=== PATIENT | male | born 1965 | race Caucasian/White ===

== ENCOUNTER → 2018-03-18 | Outpatient (CLI) | payer OTHER | LOC: M WUC 16:18 | DX: R05 Cough (principal); R06.02 Shortness of breath | CPT/HCPCS: 71046 ==

== ENCOUNTER 2018-10-17 02:20 | Emergency (ER) | payer OTHER ==
[~2018-10-17] VITALS: Ht 172.7 cm; Wt 84.1 kg
[2018-10-17] MEDS ORDERED: CYCLOBENZAPRINE 5MG TABLET PO ONE (06:30)
[2018-10-17] MEDS ORDERED: IBUPROFEN 600 MG TAB PO ONE (06:30)
[2018-10-17] MEDS ORDERED: CYCL5TAB PO (06:34)
[2018-10-17 06:40] LABS: BASO % 0.4 % (0.0-1.0); EOS # 0.1 10^3/uL (0.0-0.50); EOS % 2.5 % (0.0-3.0); HEMATOCRIT 43.2 % (42.0-52.0); HEMOGLOBIN 14.3 g/dl (13.5-17.5); LYMPH # 1.5 10^3/uL (1.5-4.5); LYMPH % 28.2 % (24.0-44.0); MEAN CORPUSCULAR HEMOGLOBIN 30.7 pg (27.0-33.0); MEAN CORPUSCULAR HGB CONC 33.1 g/dl (32.0-36.5); MEAN CORPUSCULAR VOLUME 92.7 fl (80.0-96.0); MONO # 0.7 10^3/uL (0.0-0.8); MONO % 13.5 % (0.0-5.0); NEUTROPHILS # 2.9 10^3/uL (1.8-7.7); NEUTROPHILS % 55.2 % (36.0-66.0); PLATELET COUNT, AUTOMATED 211 10^3/uL (150-450); RED BLOOD COUNT 4.66 10^6/uL (4.30-6.10); WHITE BLOOD COUNT 5.2 10^3/uL (4.0-10.0)
[2018-10-17 07:03] LABS: BLOOD UREA NITROGEN 25 MG/DL (7-18); CALCIUM LEVEL 9.1 MG/DL (8.5-10.1); CARBON DIOXIDE LEVEL 25 MEQ/L (21-32); CHLORIDE LEVEL 110 MEQ/L (98-107); CREATININE FOR GFR 0.96 MG/DL (0.70-1.30); GLOMERULAR FILTRATION RATE > 60.0 (>56); GLUCOSE, FASTING 75 MG/DL (70-100); POTASSIUM SERUM 4.4 MEQ/L (3.5-5.1); SODIUM LEVEL 142 MEQ/L (136-145)
[2018-10-17 08:10] VITALS: BP 108/65
--- NOTE | 2018-10-17 09:32 | REP ---
LUMBOSACRAL SPINE: Five views of the lumbosacral spine performed. There is no compression fracture. There is straightening of the normal lumbar lordosis which may indicate muscle spasm. There is mild spurring with moderate disc space narrowing, subchondral sclerosis with vacuum phenomenon at the L1-2 level. There is mild narrowing at the L4-5 and L5-S1 disc spaces with sclerotic change of the posterior facet joints at those levels. The posterior elements are intact. There is slight curvature towards the left. IMPRESSION: No fracture or dislocation. Straightening of the normal lumbar lordosis and mild curvature toward the left may indicate spasm. Degenerative changes as above. Electronically Signed by Magdy Flood MD 10/17/2018 05:22 P
== END 2018-10-17 08:12 | disposition home or self-care (01) ==
LOC: M ED 02:20
DX: M51.36 Other intervertebral disc degeneration, lumbar region (principal); M62.830 Muscle spasm of back; E86.0 Dehydration; R79.89 Other specified abnormal findings of blood chemistry; M54.5 Low back pain; G89.29 Other chronic pain; Z87.891 Personal history of nicotine dependence

== ENCOUNTER → 2018-10-28 | Outpatient (REF) | payer OTHER ==
[~2018-10-28] MED LIST: CYCL5TAB PO
[2018-10-28 15:48] LABS: BASO % 0.5 % (0.0-1.0); EOS # 0.1 10^3/uL (0.0-0.50); EOS % 1.9 % (0.0-3.0); HEMOGLOBIN 13.9 g/dl (13.5-17.5); LYMPH # 1.6 10^3/uL (1.5-4.5); LYMPH % 28.2 % (24.0-44.0); MEAN CORPUSCULAR HEMOGLOBIN 30.4 pg (27.0-33.0); MEAN CORPUSCULAR HGB CONC 33.1 g/dl (32.0-36.5); MEAN CORPUSCULAR VOLUME 91.9 fl (80.0-96.0); MONO # 0.7 10^3/uL (0.0-0.8); MONO % 11.7 % (0.0-5.0); NEUTROPHILS # 3.3 10^3/uL (1.8-7.7); NEUTROPHILS % 57.5 % (36.0-66.0); PLATELET COUNT, AUTOMATED 208 10^3/uL (150-450); RED BLOOD COUNT 4.57 10^6/uL (4.30-6.10); WHITE BLOOD COUNT 5.7 10^3/uL (4.0-10.0)
[2018-10-28 16:15] LABS: ALBUMIN 4.3 GM/DL (3.2-5.2); ALT/SGPT 29 U/L (12-78); BILIRUBIN,TOTAL 0.7 MG/DL (0.2-1.0); BLOOD UREA NITROGEN 19 MG/DL (7-18); CALCIUM LEVEL 9.3 MG/DL (8.5-10.1); CARBON DIOXIDE LEVEL 26 MEQ/L (21-32); CHLORIDE LEVEL 107 MEQ/L (98-107); CHOLESTEROL LEVEL 192 MG/DL (<200); CHOLESTEROL RISK RATIO 4.173 (<5); CREATININE FOR GFR 1.06 MG/DL (0.70-1.30); GLOMERULAR FILTRATION RATE > 60.0 (>56); GLUCOSE, FASTING 72 MG/DL (70-100); HDL CHOLESTEROL 46 MG/DL (>40); LDL CHOLESTEROL 126 MG/DL (<100); NON-HDL-C 146 MG/DL; POTASSIUM SERUM 4.2 MEQ/L (3.5-5.1); SODIUM LEVEL 139 MEQ/L (136-145); TOTAL PROTEIN 7.8 GM/DL (6.4-8.2); TRIGLYCERIDES LEVEL 99 MG/DL (<150)
== END ==
LOC: M SFHCPLAZ 14:56
PROVIDERS: ATTEND Physician Assistant Medical
DX: Z13.220 Encounter for screening for lipoid disorders (principal); Z12.5 Encounter for screening for malignant neoplasm of prostate; R91.1 Solitary pulmonary nodule
CPT/HCPCS: 36415; 80053; 80061; 85025; G0103; G0463

== ENCOUNTER 2018-11-25 10:25 | Emergency (ER) | payer OTHER ==
[~2018-11-25] VITALS: Ht 172.7 cm; Wt 79.1 kg
[2018-11-25 10:25] VITALS: BP 131/66
[2018-11-25] MEDS ORDERED: GABA-1171 (10:30)
[2018-11-25] MEDS ORDERED: NS 1,000 ML IV ONE (10:45)
[2018-11-25] MEDS ORDERED: ONDANSETRON 4MG/2ML VIAL (J2405) IV ONE (10:45)
[2018-11-25] MEDS ORDERED: KETOROLAC 30 MG/ML VIAL (J1885) IV ONE (10:45)
[2018-11-25 11:15] LABS: BASO % 0.3 % (0.0-1.0); EOS % 0.1 % (0.0-3.0); HEMATOCRIT 40.4 % (42.0-52.0); HEMOGLOBIN 13.8 g/dl (13.5-17.5); LYMPH # 0.8 10^3/uL (1.5-4.5); LYMPH % 10.2 % (24.0-44.0); MEAN CORPUSCULAR HEMOGLOBIN 31.4 pg (27.0-33.0); MEAN CORPUSCULAR HGB CONC 34.2 g/dl (32.0-36.5); MONO # 0.6 10^3/uL (0.0-0.8); MONO % 8.7 % (0.0-5.0); NEUTROPHILS # 5.9 10^3/uL (1.8-7.7); NEUTROPHILS % 80.2 % (36.0-66.0); PLATELET COUNT, AUTOMATED 211 10^3/uL (150-450); RED BLOOD COUNT 4.39 10^6/uL (4.30-6.10); WHITE BLOOD COUNT 7.3 10^3/uL (4.0-10.0)
[2018-11-25 11:36] LABS: ALBUMIN 3.7 GM/DL (3.2-5.2); ALT/SGPT 33 U/L (12-78); BILIRUBIN,DIRECT < 0.1 MG/DL (0.0-0.2); BILIRUBIN,TOTAL 0.5 MG/DL (0.2-1.0); LIPASE 122 U/L (73-393); TOTAL PROTEIN 7.6 GM/DL (6.4-8.2)
--- NOTE | 2018-11-25 11:44 | REP ---
CT ABDOMEN AND PELVIS WITHOUT IV OR ORAL CONTRAST: Renal stone protocol. HISTORY: Rule out left ureterolithiasis. No comparison CT. CT FINDINGS: Digital preliminary director of finance view of the abdomen demonstrates a normal bowel gas pattern. The lung bases are clear on axial CT images. The liver and the spleen are normal in size homogeneous in texture. No adrenal lesion is seen. No abnormalities noted in the pancreas or in the gallbladder. There is mild to moderate hydronephrosis affecting the left kidney. There is perinephric stranding. Some periureteral stranding is seen. A left-sided hydroureter is traced to the pelvis where there is an obstructing calculus at mid pelvic level in the distal ureter. The calculus measures 6 mm in greatest diameter and is several centimeters above the ureterovesical junction. No bladder calculus is seen. Prostate and seminal vesicles are unremarkable. No intrarenal calculus is seen on either side. Small and large intestinal bowel loops are unremarkable. Normal appendix is seen medial to the cecum. No abdominal wall defect is observed. No evidence of acute bony abnormality. IMPRESSION: Obstructing 6 mm left distal ureteral calculus located several centimeters above the ureterovesical junction with mild to moderate hydronephrosis and hydroureter on the left and periureteral and perinephric stranding. Electronically Signed by Eder Pierre MD 11/25/2018 03:59 P
[2018-11-25] MEDS ORDERED: PERC5TAB12 PO (12:23)
[2018-11-25] MEDS ORDERED: FLOM0.4C39 PO (12:23)
== END 2018-11-25 12:40 | disposition home or self-care (01) ==
LOC: M ED 10:25
DX: N13.2 Hydronephrosis with renal and ureteral calculous obstruction (principal); D64.9 Anemia, unspecified; R79.89 Other specified abnormal findings of blood chemistry; M54.5 Low back pain; Z79.899 Other long term (current) drug therapy
CPT/HCPCS: 74176; 80047; 80076; 81001; 83690; 85025; 96361; 96374; 96375; 99284; J1885; J2405

== ENCOUNTER → 2019-01-26 | Outpatient (CLI) | payer OTHER ==
[~2019-01-26] MED LIST changes: +FLOM0.4C39 PO; +GABA-1171; +PERC5TAB12 PO
--- NOTE | 2019-01-26 10:04 | REP ---
Clinical: Kidney stone. Technique: Single supine view of the abdomen and pelvis. Findings: Evaluation is limited by overlying bowel gas pattern. A 5 mm calcification is identified in the distal left ureter essentially unchanged in position from prior CT. The bowel gas pattern is nonspecific. The skeletal structures are intact and stable. Impression: 5 mm distal left ureteral calculus unchanged in position when compared to CT dated 11/25/2018. Electronically Signed by Jostin Sullivan MD 01/26/2019 09:55 A
--- NOTE | 2019-01-26 12:28 | REP ---
Chest x-ray: Two views. History: Kidney stone . Comparison study: March 18, 2018 . Findings: The lungs are well inflated and free of infiltrate. The pleural angles are sharp. The heart size is normal. Pulmonary vasculature is not increased. No significant bony abnormality is seen. Impression: Negative chest x-ray. Electronically Signed by Eder Pierre MD 01/26/2019 12:20 P
[2019-01-26 13:39] LABS: HEMATOCRIT 41.2 % (42.0-52.0); HEMOGLOBIN 13.5 g/dl (13.5-17.5); MEAN CORPUSCULAR HGB CONC 32.8 g/dl (32.0-36.5); MEAN CORPUSCULAR VOLUME 91.6 fl (80.0-96.0); PLATELET COUNT, AUTOMATED 159 10^3/uL (150-450); WHITE BLOOD COUNT 6.1 10^3/uL (4.0-10.0)
[2019-01-26 13:54] LABS: INR 1.14; PROTHROMBIN TIME 14.3 SECONDS (11.8-14.0)
[2019-01-26 13:55] LABS: PARTIAL THROMBOPLASTIN TIME 31.7 SECONDS (25.0-38.4)
[2019-01-26 14:14] LABS: BLOOD UREA NITROGEN 16 MG/DL (7-18); CALCIUM LEVEL 9.5 MG/DL (8.5-10.1); CARBON DIOXIDE LEVEL 29 MEQ/L (21-32); CHLORIDE LEVEL 105 MEQ/L (98-107); CREATININE FOR GFR 0.91 MG/DL (0.70-1.30); GLOMERULAR FILTRATION RATE > 60.0 (>56); GLUCOSE, FASTING 89 MG/DL (70-100); SODIUM LEVEL 142 MEQ/L (136-145)
[2019-01-26 15:33] LABS: APPEARANCE, URINE CLEAR (CLEAR); BACTERIA, URINE AUTO NEGATIVE (NEGATIVE); BILIRUBIN, URINE AUTO NEGATIVE (NEGATIVE); BLOOD, URINE BLOOD NEGATIVE (NEGATIVE); COLOR, URINE YELLOW (YELLOW); GLUCOSE, URINE (UA) AUTO NEGATIVE (NEGATIVE); KETONE, URINE AUTO NEGATIVE (NEGATIVE); LEUKOCYTE ESTERASE, URINE AUTO NEGATIVE (NEGATIVE); NITRITE, URINE AUTO NEGATIVE (NEGATIVE); PROTEIN, URINE AUTO NEGATIVE (NEGATIVE); RBC, URINE AUTO 0 /HPF (0-3); SPECIFIC GRAVITY URINE AUTO 1.008 (1.002-1.035); SQUAMOUS EPITHELIAL CELL UR AU 0 /HPF (0-6); UROBILINOGEN, URINE AUTO 0.2 mg/dL (0.0-2.0); WBC, URINE AUTO 0 /HPF (0-3)
== END ==
LOC: M SMT 09:32
PROVIDERS: ATTEND Nurse Practitioner Family
DX: N20.0 Calculus of kidney (principal)
CPT/HCPCS: 36415; 71046; 74018; 80048; 81001; 85027; 85610; 85730; 87086; G0463

== ENCOUNTER → 2019-02-14 | Outpatient (CLI) | payer OTHER ==
[2019-02-14 12:07] LABS: APPEARANCE, URINE CLEAR (CLEAR); BACTERIA, URINE AUTO NEGATIVE (NEGATIVE); BILIRUBIN, URINE AUTO NEGATIVE (NEGATIVE); BLOOD, URINE BLOOD NEGATIVE (NEGATIVE); COLOR, URINE YELLOW (YELLOW); GLUCOSE, URINE (UA) AUTO NEGATIVE (NEGATIVE); KETONE, URINE AUTO NEGATIVE (NEGATIVE); LEUKOCYTE ESTERASE, URINE AUTO NEGATIVE (NEGATIVE); NITRITE, URINE AUTO NEGATIVE (NEGATIVE); PROTEIN, URINE AUTO NEGATIVE (NEGATIVE); RBC, URINE AUTO 0 /HPF (0-3); SPECIFIC GRAVITY URINE AUTO 1.009 (1.002-1.035); SQUAMOUS EPITHELIAL CELL UR AU 0 /HPF (0-6); UROBILINOGEN, URINE AUTO 0.2 mg/dL (0.0-2.0); WBC, URINE AUTO 0 /HPF (0-3)
--- NOTE | 2019-02-14 17:59 | ECGEPIP ---
[facility] Test Date: 2019-02-14 Pat Name: FRANCISCO TOLENTINO Department: Room: - Gender: Male [employer]: DELFIN : 1965 Requested By: Te MILAN Order Number: [id number] Reading MD: Anisa Cohen Measurements Intervals [place] Rate: 50 P: 66 [place]: 144 QRS: 54 QRSD: 80 T: 18 QT: 416 QTc: 383 Interpretive Statements SINUS BRADYCARDIA NO PRIOR Electronically Signed on 02-14-2019 17:59:00 EDT by Anisa Cohen
== END ==
LOC: M EKG 11:40
PROVIDERS: ATTEND Nurse Practitioner Family
DX: N20.0 Calculus of kidney (principal); R00.1 Bradycardia, unspecified

== ENCOUNTER 2019-02-24 07:22 | Day surgery (SDC) | payer OTHER ==
[~2019-02-24] VITALS: Ht 172.7 cm; Wt 78.0 kg
[~2019-02-24 07:22] MED LIST changes: +LIDOCAINE 2% INJ 100 MG/5 ML SDV (FOR ANES.) As Ordered ONE; +LR 1,000 ML IV ONE; +PROPOFOL 200 MG/20 ML VIAL As Ordered ONE; +PROPOFOL 500 MG/50 ML VIAL As Ordered ONE; +fentaNYL 100 MCG/2 ML INJECTION (J3010) As Ordered ONE
[2019-02-24] MEDS ORDERED: ONDANSETRON 4MG/2ML VIAL (J2405) As Ordered ONE (08:19)
[2019-02-24] MEDS ORDERED: dexameTHASONE 4 MG/ML 1ML VIAL (J1100) As Ordered ONE (08:20)
[2019-02-24] MEDS ORDERED: MIDAZOLAM INJ 2 MG/2 ML VIAL (J2250) As Ordered ONE (08:21)
[2019-02-24] MEDS ORDERED: CONRAY-60 60% 50ML VIAL (Q9961) As Ordered ONE (09:39)
--- NOTE | 2019-02-24 09:39 | REP ---
Very pyelogram: A single intraoperative fluoroscopic views performed during left ureteral stent placement: The proximal and distal stent pigtails are in satisfactory locations. Fluoroscopic exposure time is 0.09 seconds. Fluoroscopic images are performed with last image hold technology and require no additional radiation. Electronically Signed by Magdy Haq MD 02/24/2019 09:31 A
[2019-02-24] MEDS ORDERED: PERCOCET PO (09:54)
[2019-02-24] MEDS ORDERED: BACT800T5 PO (09:54)
[2019-02-24] MEDS ORDERED: PYRI1TAB5 PO (09:54)
[2019-02-24] MEDS ORDERED: OXYB5TAB2 PO (09:54)
[2019-02-24] MEDS ORDERED: ONDANSETRON 4MG/2ML VIAL (J2405) IV PRN (10:15)
[2019-02-24] MEDS ORDERED: fentaNYL 100 MCG/2 ML INJECTION (J3010) IV PRN (10:15)
[2019-02-24] MEDS ORDERED: MEPERIDINE INJ 25 MG/ML VIAL (J2175) IV PRN (10:15)
[2019-02-24] MEDS ORDERED: LR 1,000 ML IV SCH (10:15)
[2019-02-24] MEDS ORDERED: METOCLOPRAMIDE INJ 10MG/2ML VIAL (J2765) IV PRN (10:15)
[2019-02-24] MEDS ORDERED: oxyCODONE 5MG TAB PO PRN (10:15)
[2019-02-24 11:21] VITALS: BP 102/59
--- NOTE | 2019-02-24 22:18 | RO ---
DATE OF PROCEDURE: 02/24/2019 PREPROCEDURE DIAGNOSIS: Left ureteral stone. POSTPROCEDURE DIAGNOSIS: Left ureteral stone. PROCEDURE: Left ureteroscopic stone extraction with laser lithotripsy and basket extraction of stone. SURGEON: Alex Nolan MD CITY CARRIER: ANESTHESIA: General. INDICATIONS: This 54-year-old man has been trying unsuccessfully to pass a 6 mm stone for the last several weeks. He is having intermittent mild pain. DESCRIPTION OF PROCEDURE: After obtaining informed consent from the patient, he was taken to the operating room where after sufficient anesthetic, he was prepped and draped in the usual manner. A 22-[place] diagnostic cystoscope was advanced to the bladder and the bladder inspected. No stones seen. A wire was negotiated past the stone to the kidney under fluoroscopic control. We were unable to advance the rigid mini ureteroscope on the patient's left side. For this reason, we used a 12-[place] 4 cm balloon dilating catheter to dilate the ureteral orifice. This was done to 12 atmospheres. Fluoroscopic control was used. We thereafter passed the rigid mini ureteroscope without difficulty to the stone. It was grasped with a basket but could not be readily withdrawn. We used the 200 micron Holmium laser fiber to cut the stone into three pieces, which were then sequentially removed from the ureter. Final inspection showed no remaining stone. There was some edema at the point of stone impaction and at the area of ureteral orifice dilation. For these reasons, we elected to leave a stent. A 5-[place] stent was passed over the safety guidewire and positioned fluoroscopically in the kidney and bladder. The string was left attached, the bladder emptied, and the patient to recovery in satisfactory condition. There were no intraoperative complications. Blood loss was minimal. DISPOSITION: He is dismissed home on DS one by mouth twice a day, Pyridium 200 mg three times a day as needed for dysuria, oxybutynin 5 mg XL daily for bladder spasms. Percocet 5 one by mouth every 4-6 hours as needed pain. Diet as tolerated. Activity light. Followup next with nurse practitioner for stent removal. No driving within 8 hours of taking narcotics.
[2019-03-07 10:07] LABS: COMMENT Note: (.); Ca Ox Monohydrate 95 % (.)
== END 2019-02-24 11:21 | disposition home or self-care (01) ==
LOC: M SDC 07:22
PROVIDERS: ATTEND Urology
DX: N20.1 Calculus of ureter (principal); N20.0 Calculus of kidney; D64.9 Anemia, unspecified; G47.30 Sleep apnea, unspecified
CPT/HCPCS: 52356; 74420; 82360; 88300; C1769; C2617; J0690; J1100; J2250; J2405; J3010; Q9961

== ENCOUNTER → 2019-04-04 | Outpatient (CLI) | payer OTHER ==
[~2019-04-04] MED LIST changes: +BACT800T5 PO; -LIDOCAINE 2% INJ 100 MG/5 ML SDV (FOR ANES.) As Ordered ONE; -LR 1,000 ML IV ONE; +OXYB5TAB2 PO; +PERCOCET PO; -PROPOFOL 200 MG/20 ML VIAL As Ordered ONE; -PROPOFOL 500 MG/50 ML VIAL As Ordered ONE; +PYRI1TAB5 PO; -fentaNYL 100 MCG/2 ML INJECTION (J3010) As Ordered ONE
--- NOTE | 2019-04-04 09:35 | REP ---
RENAL ULTRASOUND: Real-time sonographic evaluation of the kidneys performed. Kidneys are normal in size and echotexture, right kidney measuring 11.0 x 5.5 x 7.1 cm and left 11.1 x 5.0 x 5.7 cm. There is no hydronephrosis bilaterally. No definite renal stone is seen. There is an extrarenal pelvis on the right. IMPRESSION: No hydronephrosis and no definite renal calculus. Electronically Signed by Magdy Flood MD 04/04/2019 10:30 A
--- NOTE | 2019-04-04 09:37 | REP ---
ULTRASOUND URINARY BLADDER: Real-time sonographic evaluation of the urinary bladder performed. Bladder measures 11.2 x 9.5 x 7.3 cm for a total volume of 507 mL. There is no wall thickening, mass, or calculus. Bilateral ureteral jets are seen in the urinary bladder with Doppler color evaluation. Postvoid residual is 34 mL which is 7% of the original volume. IMPRESSION: No mass or calculus. Mild postvoid residual of 7%. Electronically Signed by Magdy Flood MD 04/04/2019 10:30 A
== END ==
LOC: M RAD 08:29
PROVIDERS: ATTEND Nurse Practitioner Family
DX: N20.0 Calculus of kidney (principal)

== ENCOUNTER → 2019-09-20 | Outpatient (CLI) | payer OTHER ==
[~2019-09-20] MED LIST changes: +OXYB-54 PO; -OXYB5TAB2 PO
== END ==
LOC: M LABSMTC 10:21
PROVIDERS: ATTEND Family Medicine
DX: Z11.59 Encounter for screening for other viral diseases (principal); Z20.828 Contact with and (suspected) exposure to other viral communicable diseases

== ENCOUNTER → 2019-11-07 | Outpatient (REF) | payer OTHER ==
[2019-11-07 10:38] LABS: BASO % 0.5 % (0.0-1.0); EOS # 0.2 10^3/uL (0.0-0.5); EOS % 3.1 % (0.0-3.0); HEMATOCRIT 45.6 % (42.0-52.0); HEMOGLOBIN 15.1 g/dl (13.5-17.5); LYMPH # 2.1 10^3/uL (1.5-5.0); LYMPH % 33.9 % (24.0-44.0); MEAN CORPUSCULAR HEMOGLOBIN 30.8 pg (27.0-33.0); MEAN CORPUSCULAR HGB CONC 33.1 g/dl (32.0-36.5); MEAN CORPUSCULAR VOLUME 92.9 fl (80.0-96.0); MONO # 0.8 10^3/uL (0.0-0.8); MONO % 13.9 % (0.0-5.0); NEUTROPHILS # 2.9 10^3/uL (1.5-8.5); NEUTROPHILS % 48.4 % (36.0-66.0); PLATELET COUNT, AUTOMATED 144 10^3/uL (150-450); RED BLOOD COUNT 4.91 10^6/uL (4.30-6.10); WHITE BLOOD COUNT 6.1 10^3/uL (4.0-10.0)
[2019-11-07 11:12] LABS: ALBUMIN 4.1 GM/DL (3.2-5.2); ALT/SGPT 42 U/L (12-78); BILIRUBIN,TOTAL 0.4 MG/DL (0.2-1.0); BLOOD UREA NITROGEN 16 MG/DL (7-18); CALCIUM LEVEL 9.8 MG/DL (8.5-10.1); CARBON DIOXIDE LEVEL 29 MEQ/L (21-32); CHLORIDE LEVEL 104 MEQ/L (98-107); CHOLESTEROL LEVEL 182 MG/DL (<200); CHOLESTEROL RISK RATIO 4.789 (<5); CREATININE FOR GFR 0.95 MG/DL (0.70-1.30); FREE T4 1.01 NG/DL (0.76-1.46); GLOMERULAR FILTRATION RATE > 60.0 (>56); GLUCOSE, FASTING 86 MG/DL (70-100); HDL CHOLESTEROL 38 MG/DL (>40); LDL CHOLESTEROL 118 MG/DL (<100); NON-HDL-C 144 MG/DL; POTASSIUM SERUM 4.3 MEQ/L (3.5-5.1); SODIUM LEVEL 139 MEQ/L (136-145); TOTAL PROTEIN 8.1 GM/DL (6.4-8.2); TRIGLYCERIDES LEVEL 128 MG/DL (<150)
[2019-11-08 14:16] LABS: TESTOSTERONE FREE (DIRECT) 11.9 pg/mL (7.2-24.0)
== END ==
LOC: M SFHCPLAZ 08:27
PROVIDERS: ATTEND Physician Assistant Medical
DX: R68.82 Decreased libido (principal); Z12.5 Encounter for screening for malignant neoplasm of prostate; Z13.220 Encounter for screening for lipoid disorders; Z12.11 Encounter for screening for malignant neoplasm of colon
CPT/HCPCS: 36415; 80053; 80061; 84402; 84403; 84439; 84443; 85025; G0103; G0463

== ENCOUNTER → 2019-11-28 | Outpatient (CLI) | payer OTHER ==
--- NOTE | 2019-11-29 04:06 | REP ---
Clinical: Follow-up pulmonary nodule. Technique: Axial noncontrast images from the thoracic inlet to the upper abdomen with coronal and sagittal re-formations. Comparison: 05/19/2005. Findings: The bilateral lung mckinney are well-aerated and essentially clear. No consolidation, significant nodule, or mass lesion. A 3 mm perifissural nodule along the left major fissure (image 57) remain stable compared to 2005. No effusion. No pneumothorax. Tracheobronchial tree is patent. No obvious adenopathy. The mediastinum demonstrates minimal atherosclerotic changes to the thoracic aorta and coronary arteries without aortic aneurysm or cardiomegaly. No pericardial effusion. Surrounding musculoskeletal structures intact without acute osseous abnormality. Impression: 1. Stable 3 mm perifissural nodule unchanged compared to 2004. 2. No acute mediastinal or pleuroparenchymal process appreciated. Electronically Signed by Jostin Sullivan MD 11/29/2019 03:58 A
== END ==
LOC: M RAD 10:29
PROVIDERS: ATTEND Physician Assistant Medical
DX: R91.1 Solitary pulmonary nodule (principal)

== ENCOUNTER → 2020-05-07 | Outpatient (REF) | payer OTHER ==
[2020-05-07 10:40] LABS: BASO % 0.4 % (0.0-1.0); EOS # 0.2 10^3/uL (0.0-0.5); EOS % 2.9 % (0.0-3.0); HEMOGLOBIN 13.3 g/dl (13.5-17.5); LYMPH # 1.8 10^3/uL (1.5-5.0); LYMPH % 31.6 % (24.0-44.0); MEAN CORPUSCULAR HEMOGLOBIN 29.7 pg (27.0-33.0); MEAN CORPUSCULAR HGB CONC 31.7 g/dl (32.0-36.5); MEAN CORPUSCULAR VOLUME 93.8 fl (80.0-96.0); MONO # 0.8 10^3/uL (0.0-0.8); MONO % 13.9 % (0.0-5.0); NEUTROPHILS # 2.8 10^3/uL (1.5-8.5); PLATELET COUNT, AUTOMATED 141 10^3/uL (150-450); RED BLOOD COUNT 4.48 10^6/uL (4.30-6.10); WHITE BLOOD COUNT 5.5 10^3/uL (4.0-10.0)
== END ==
LOC: M SFHCPLAZ 08:49
PROVIDERS: ATTEND Physician Assistant Medical
DX: Z80.7 Family history of other malignant neoplasms of lymphoid, hematopoietic and related tissues (principal)
CPT/HCPCS: 36415; 85025; 87880; G0463

== ENCOUNTER → 2020-08-16 | Outpatient (REF) | payer OTHER ==
[~2020-08-16] MED LIST changes: +PRED20TA PO; +URSO300C3 PO
[2020-08-16 17:49] LABS: BASO % 0.3 % (0.0-1.0); EOS % 0.3 % (0.0-3.0); HEMATOCRIT 39.1 % (42.0-52.0); HEMOGLOBIN 12.1 g/dl (13.5-17.5); LYMPH # 0.9 10^3/uL (1.5-5.0); LYMPH % 27.7 % (24.0-44.0); MEAN CORPUSCULAR HEMOGLOBIN 27.9 pg (27.0-33.0); MEAN CORPUSCULAR HGB CONC 30.9 g/dl (32.0-36.5); MEAN CORPUSCULAR VOLUME 90.1 fl (80.0-96.0); MONO # 0.6 10^3/uL (0.0-0.8); MONO % 17.4 % (2.0-8.0); NEUTROPHILS # 1.8 10^3/uL (1.5-8.5); NEUTROPHILS % 53.7 % (36.0-66.0); PLATELET COUNT, AUTOMATED 174 10^3/uL (150-450); RED BLOOD COUNT 4.34 10^6/uL (4.30-6.10); WHITE BLOOD COUNT 3.4 10^3/uL (4.0-10.0)
[2020-08-16 18:06] LABS: MONO SCRN NEGATIVE (NEGATIVE)
[2020-08-16 18:11] LABS: ALBUMIN 3.2 GM/DL (3.2-5.2); ALT/SGPT 182 U/L (12-78); BILIRUBIN,TOTAL 0.7 MG/DL (0.2-1.0); BLOOD UREA NITROGEN 14 MG/DL (7-18); CALCIUM LEVEL 9.3 MG/DL (8.5-10.1); CARBON DIOXIDE LEVEL 28 MEQ/L (21-32); CHLORIDE LEVEL 103 MEQ/L (98-107); CHOLESTEROL LEVEL 163 MG/DL (<200); CHOLESTEROL RISK RATIO 7.086 (<5); CREATININE FOR GFR 1.06 MG/DL (0.70-1.30); GLOMERULAR FILTRATION RATE > 60.0 (>56); GLUCOSE, FASTING 91 MG/DL (70-100); HDL CHOLESTEROL 23 MG/DL (>40); LDL CHOLESTEROL 110 MG/DL (<100); NON-HDL-C 140 MG/DL; POTASSIUM SERUM 4.4 MEQ/L (3.5-5.1); SODIUM LEVEL 138 MEQ/L (136-145); TOTAL PROTEIN 7.9 GM/DL (6.4-8.2); TRIGLYCERIDES LEVEL 151 MG/DL (<150)
[2020-08-16 18:16] LABS: HEPATITIS B SURFACE ANTIBODY NEGATIVE (POSITIVE)
[2020-08-16 18:27] LABS: HEPATITIS B SURFACE ANTIGEN NEGATIVE (NEGATIVE)
[2020-08-16 18:57] LABS: HEPATITIS A ANTIBODY IGM NEGATIVE (NEGATIVE)
[2020-08-16 19:18] LABS: LABILE ALKPHOS 211 U/L; STABLE ALKPHOS 180 U/L
[2020-08-16 19:19] LABS: % LABILE ALKALINE PHOSPHATASE 53.9 %
[2020-08-19 11:48] LABS: HEPATITIS C VIRUS ABY INDEX < 0.0 INDEX (<0.8)
[2020-08-19 19:10] LABS: AFP TUMOR TOTAL 1.4 ng/mL (0.0-8.0); HEPATITIS A IgG TOTAL Positive (Negative); TESTOSTERONE FREE (DIRECT) 5.9 pg/mL (7.2-24.0)
== END ==
LOC: M SFHCPLAZ 15:03
PROVIDERS: ATTEND Physician Assistant Medical
DX: R79.89 Other specified abnormal findings of blood chemistry (principal); Z80.7 Family history of other malignant neoplasms of lymphoid, hematopoietic and related tissues; R68.82 Decreased libido; Z12.5 Encounter for screening for malignant neoplasm of prostate; Z13.220 Encounter for screening for lipoid disorders; D72.810 Lymphocytopenia
CPT/HCPCS: 36415; 80053; 80061; 82107; 83625; 84078; 84402; 84403; 85025; 86308; 86706; 86708; 86709; 86803; 87340; G0103; G0463

== ENCOUNTER → 2020-08-23 | Outpatient (CLI) | payer OTHER ==
[~2020-08-23] MED LIST changes: -PRED20TA PO; -URSO300C3 PO
[2020-08-23 07:13] LABS: BASO % 0.3 % (0.0-1.0); EOS % 0.3 % (0.0-3.0); HEMATOCRIT 38.7 % (42.0-52.0); HEMOGLOBIN 12.2 g/dl (13.5-17.5); LYMPH # 0.9 10^3/uL (1.5-5.0); MEAN CORPUSCULAR HEMOGLOBIN 28.3 pg (27.0-33.0); MEAN CORPUSCULAR HGB CONC 31.5 g/dl (32.0-36.5); MEAN CORPUSCULAR VOLUME 89.8 fl (80.0-96.0); MONO # 0.5 10^3/uL (0.0-0.8); MONO % 15.5 % (2.0-8.0); NEUTROPHILS # 1.9 10^3/uL (1.5-8.5); NEUTROPHILS % 57.6 % (36.0-66.0); PLATELET COUNT, AUTOMATED 174 10^3/uL (150-450); RED BLOOD COUNT 4.31 10^6/uL (4.30-6.10); WHITE BLOOD COUNT 3.4 10^3/uL (4.0-10.0)
--- NOTE | 2020-08-23 07:37 | REPVR ---
PROCEDURE INFORMATION: Exam: US Abdomen, Limited; Right Upper Quadrant Exam date and time: 08/23/2020 6:55 AM Age: 55 years old Clinical indication: Abnormal findings; Abnormal lab test; Abnormal function test of other organs/systems; Additional info: Elevated lft/s ruq pain fever- lab first TECHNIQUE: Imaging protocol: US abdomen. Real time ultrasound with image documentation. Limited exam focused on the right upper quadrant. COMPARISON: RENAL US 04/04/2019 8:42 AM FINDINGS: Liver: The liver contains a 5 x 6 x 8 mm cyst in its left lobe. It is otherwise homogeneous in echotexture. No demonstrated mass or intrahepatic biliary ductal dilatation. Gallbladder: The gallbladder wall is thickened up to 7.3 mm. There is no significant pericholecystic fluid, and no stones or sludge are demonstrated in the gallbladder. Sonographic Hauser sign is reportedly negative. Common bile duct: The common bile duct appears slightly large for a patient of this age, measuring 6.2 mm. Pancreas: Visualized portions of the pancreas, not fully including the body or tail, are without demonstrated abnormality. Right kidney: The right kidney measures 11.1 x 7.3 x 5.2 cm. Normal appearing echotexture. There is no hydronephrosis or demonstrated renal stone, cyst or mass. Inferior vena cava: The IVC is present. IMPRESSION: 1. Nonspecific gallbladder wall thickening without cholelithiasis or other sonographic evidence of cholecystitis. Potential etiologies may include chronic or acalculous cholecystitis, neoplasm or secondary causes such as pancreatitis, liver disease or heart failure. 2. Slight enlargement of the common bile duct at 6.2 mm. Correlate as to any possible biliary obstruction and consider dedicated evaluation, such as MRI/MRCP. Electronically signed by: Huy Hernandez On 08/23/2020 07:37:48 AM
[2020-08-23 07:40] LABS: ALBUMIN 2.9 GM/DL (3.2-5.2); ALT/SGPT 177 U/L (12-78); BILIRUBIN,TOTAL 1.1 MG/DL (0.2-1.0); BLOOD UREA NITROGEN 11 MG/DL (7-18); CARBON DIOXIDE LEVEL 26 MEQ/L (21-32); CHLORIDE LEVEL 109 MEQ/L (98-107); CREATININE FOR GFR 1.01 MG/DL (0.70-1.30); GLOMERULAR FILTRATION RATE > 60.0 (>56); GLUCOSE, FASTING 97 MG/DL (70-100); POTASSIUM SERUM 4.3 MEQ/L (3.5-5.1); SODIUM LEVEL 140 MEQ/L (136-145); TOTAL PROTEIN 7.7 GM/DL (6.4-8.2)
[2020-08-24 20:07] LABS: ANA (HEP2) Negative (.); ANTI-MITOCHONDRIAL ANTIBODY 61.4 Units (0.0-20.0)
== END ==
LOC: M RAD 06:22
PROVIDERS: ATTEND Physician Assistant Medical
DX: K75.9 Inflammatory liver disease, unspecified (principal)

== ENCOUNTER → 2020-08-28 | Outpatient (REF) | payer OTHER ==
[~2020-08-28] MED LIST changes: +PRED20TA PO; +URSO300C3 PO
[2020-08-28 13:30] LABS: BASO % 0.6 % (0.0-1.0); EOS % 0.6 % (0.0-3.0); HEMATOCRIT 40.9 % (42.0-52.0); HEMOGLOBIN 12.5 g/dl (13.5-17.5); LYMPH # 0.9 10^3/uL (1.5-5.0); LYMPH % 27.7 % (24.0-44.0); MEAN CORPUSCULAR HEMOGLOBIN 27.4 pg (27.0-33.0); MEAN CORPUSCULAR HGB CONC 30.6 g/dl (32.0-36.5); MEAN CORPUSCULAR VOLUME 89.5 fl (80.0-96.0); MONO # 0.6 10^3/uL (0.0-0.8); MONO % 17.7 % (2.0-8.0); NEUTROPHILS # 1.6 10^3/uL (1.5-8.5); NEUTROPHILS % 53.1 % (36.0-66.0); RED BLOOD COUNT 4.57 10^6/uL (4.30-6.10); WHITE BLOOD COUNT 3.1 10^3/uL (4.0-10.0)
[2020-08-28 13:44] LABS: INR 1.12; PROTHROMBIN TIME 14.6 SECONDS (12.5-14.3)
[2020-08-28 13:45] LABS: PARTIAL THROMBOPLASTIN TIME 47.9 SECONDS (24.2-38.5)
[2020-08-28 14:03] LABS: ALBUMIN 2.9 GM/DL (3.2-5.2); ALT/SGPT 103 U/L (12-78); BILIRUBIN,TOTAL 0.7 MG/DL (0.2-1.0); BLOOD UREA NITROGEN 12 MG/DL (7-18); CALCIUM LEVEL 9.1 MG/DL (8.5-10.1); CARBON DIOXIDE LEVEL 28 MEQ/L (21-32); CHLORIDE LEVEL 104 MEQ/L (98-107); FERRITIN 147 NG/ML (26-388); FREE T4 1.13 NG/DL (0.76-1.46); GLOMERULAR FILTRATION RATE > 60.0 (>56); GLUCOSE, FASTING 88 MG/DL (70-100); IRON (FE) 38 UG/DL (65-175); POTASSIUM SERUM 4.2 MEQ/L (3.5-5.1); SODIUM LEVEL 137 MEQ/L (136-145); TOTAL PROTEIN 8.1 GM/DL (6.4-8.2)
[2020-08-28 14:16] LABS: ERYTHROCYTE SEDIMENTATION RATE 98 mm/hr (0-20)
== END ==
LOC: M SFHCPLAZ 11:25
PROVIDERS: ATTEND Physician Assistant Medical
DX: K75.9 Inflammatory liver disease, unspecified (principal); Z80.7 Family history of other malignant neoplasms of lymphoid, hematopoietic and related tissues

== ENCOUNTER 2020-08-30 15:02 | Emergency (ER) | payer OTHER ==
[~2020-08-30] VITALS: Ht 172.7 cm; Wt 77.2 kg
[~2020-08-30 15:02] MED LIST changes: -PRED20TA PO; -URSO300C3 PO
[2020-08-30 15:56] LABS: BASO % 0.6 % (0.0-1.0); EOS % 1.1 % (0.0-3.0); HEMATOCRIT 39.7 % (42.0-52.0); HEMOGLOBIN 12.3 g/dl (13.5-17.5); LYMPH # 1.1 10^3/uL (1.5-5.0); LYMPH % 30.1 % (24.0-44.0); MEAN CORPUSCULAR VOLUME 87.1 fl (80.0-96.0); MONO # 0.6 10^3/uL (0.0-0.8); MONO % 16.3 % (2.0-8.0); NEUTROPHILS # 1.8 10^3/uL (1.5-8.5); NEUTROPHILS % 51.6 % (36.0-66.0); PLATELET COUNT, AUTOMATED 245 10^3/uL (150-450); RED BLOOD COUNT 4.56 10^6/uL (4.30-6.10); WHITE BLOOD COUNT 3.6 10^3/uL (4.0-10.0)
[2020-08-30 16:26] LABS: ALBUMIN 3.1 GM/DL (3.2-5.2); ALT/SGPT 84 U/L (12-78); BILIRUBIN,DIRECT 0.2 MG/DL (0.0-0.2); BILIRUBIN,TOTAL 0.6 MG/DL (0.2-1.0); LIPASE 117 U/L (73-393); TOTAL PROTEIN 8.3 GM/DL (6.4-8.2)
[2020-08-30] MEDS ORDERED: NS 1,000 ML IV ONE (17:05)
[2020-08-30] MEDS ORDERED: ISOVUE-370 76% 100ML VIAL As Ordered ONE (18:00)
--- NOTE | 2020-08-30 18:37 | REPVR ---
PROCEDURE INFORMATION: Exam: CT Abdomen And Pelvis With Contrast Exam date and time: 08/30/2020 5:53 PM Age: 55 years old Clinical indication: Pain and abnormal findings; Abnormal lab test; Elevated liver enzymes; Abdominal pain; Additional info: Right abd pain, elevated lft's TECHNIQUE: Imaging protocol: Computed tomography of the abdomen and pelvis with contrast. Radiation optimization: All CT scans at this facility use at least one of these dose optimization techniques: automated exposure control; mA and/or kV adjustment per patient size (includes targeted exams where dose is matched to clinical indication); or iterative reconstruction. Contrast material: ISOVUE 370; Contrast volume: 100 ml; Contrast route: INTRAVENOUS (IV); COMPARISON: CT ABD PELVIS W/O CONTRAST 11/25/2018 10:58 AM FINDINGS: Lungs: 4 mm noncalcified nodule lingular lobe likely postinflammatory. No follow-up suggested. Liver: There is a diffuse decrease in hepatic parenchymal density, consistent with steatosis. Gallbladder and bile ducts: Normal. No calcified stones. No ductal dilation. Pancreas: Normal. No ductal dilation. Spleen: There is moderate splenomegaly with a maximum span of 15.5 centimeters. No focal abnormalities demonstrated. Adrenal glands: Normal. No mass. Kidneys and ureters: 1.4 cm enhancing solid appearing lesion in the lower pole of the left kidney. Finding may represent a small renal neoplasm. Stomach and bowel: Unremarkable. No obstruction. No mucosal thickening. Appendix: No evidence of appendicitis. Intraperitoneal space: Unremarkable. No free air. No significant fluid collection. Vasculature: Unremarkable. No abdominal aortic aneurysm. Lymph nodes: Unremarkable. No enlarged lymph nodes. Urinary bladder: Unremarkable as visualized. Reproductive: Unremarkable as visualized. Bones/joints: Moderate to severe central spinal stenosis L3-L4 and severe central spinal stenosis L4-L5. Severe foraminal stenosis on the left at L5-S1. Soft tissues: There is a small umbilical hernia. There is no evidence of incarceration. IMPRESSION: 1. There is moderate splenomegaly with a maximum span of 15.5 centimeters. No focal abnormalities demonstrated. 2. There is a diffuse decrease in hepatic parenchymal density, consistent with steatosis. 3. 1.4 cm enhancing solid appearing lesion in the lower pole of the left kidney. Finding may represent a small renal neoplasm. COMMENTS: Consistent with the [employer] [place] [employer]'s Incidental Findings Committee white paper (J Am Alycia Radiol 2018): Any incidental renal lesion less than 1 cm or classified as too small to characterize, or any incidental cystic renal lesion characterized as simple-appearing, is likely benign. No follow-up imaging is recommended for these lesions per consensus recommendations based on imaging criteria. Electronically signed by: Sherif Simmons On 08/30/2020 18:38:36 PM
[2020-08-30 18:42] LABS: HEPATITIS B SURFACE ANTIGEN NEGATIVE (NEGATIVE)
[2020-08-30 19:09] LABS: HEPATITIS B CORE ANTIBODY IGM NEGATIVE (NEGATIVE); HEPATITIS C VIRUS ABY INDEX < 0.0 INDEX (<0.8)
[2020-08-30 19:11] LABS: HEPATITIS A ANTIBODY IGM NEGATIVE (NEGATIVE)
[2020-08-30 19:18] VITALS: BP 106/64
--- NOTE | 2020-08-31 07:27 | ED PDOC ---
Post-Departure Follow-Up sarai rubio faxed formal report of ct abd/p for fu Garima Carr MD Aug 31, 2020 07:27
[2020-09-02 14:07] LABS: EBV VIRAL CAPSID AG IgM <36.0 U/mL (0.0-35.9)
== END 2020-08-30 20:00 | disposition home or self-care (01) ==
LOC: M ED 15:02
DX: N28.9 Disorder of kidney and ureter, unspecified (principal); R16.2 Hepatomegaly with splenomegaly, not elsewhere classified; R94.5 Abnormal results of liver function studies; Z79.891 Long term (current) use of opiate analgesic; Z79.899 Other long term (current) drug therapy
CPT/HCPCS: 74177; 80047; 80076; 81001; 83690; 85025; 86665; 86705; 86709; 86803; 87340; 96360; 99284; Q9967

== ENCOUNTER 2020-09-01 23:35 | Emergency (ER) | payer OTHER ==
[~2020-09-01] VITALS: Ht 172.7 cm; Wt 78.4 kg
[2020-09-01] MEDS ORDERED: URSO300C3 PO (23:50)
[2020-09-02] MEDS ORDERED: predniSONE 20 MG TAB PO ONE (00:40)
[2020-09-02] MEDS ORDERED: diphenhydrAMINE 50MG CAP PO ONE (00:40)
[2020-09-02 01:22] LABS: BASO % 0.2 % (0.0-1.0); HEMATOCRIT 38.9 % (42.0-52.0); HEMOGLOBIN 12.1 g/dl (13.5-17.5); LYMPH % 25.6 % (24.0-44.0); MEAN CORPUSCULAR HEMOGLOBIN 27.4 pg (27.0-33.0); MEAN CORPUSCULAR HGB CONC 31.1 g/dl (32.0-36.5); MEAN CORPUSCULAR VOLUME 88.2 fl (80.0-96.0); MONO # 0.7 10^3/uL (0.0-0.8); MONO % 16.5 % (2.0-8.0); NEUTROPHILS # 2.3 10^3/uL (1.5-8.5); NEUTROPHILS % 56.5 % (36.0-66.0); PLATELET COUNT, AUTOMATED 272 10^3/uL (150-450); RED BLOOD COUNT 4.41 10^6/uL (4.30-6.10); WHITE BLOOD COUNT 4.1 10^3/uL (4.0-10.0)
[2020-09-02 01:49] LABS: ALBUMIN 3.1 GM/DL (3.2-5.2); ALT/SGPT 76 U/L (12-78); BILIRUBIN,DIRECT 0.3 MG/DL (0.0-0.2); BILIRUBIN,TOTAL 0.5 MG/DL (0.2-1.0); BLOOD UREA NITROGEN 17 MG/DL (7-18); CALCIUM LEVEL 9.4 MG/DL (8.5-10.1); CARBON DIOXIDE LEVEL 28 MEQ/L (21-32); CHLORIDE LEVEL 102 MEQ/L (98-107); CREATININE FOR GFR 1.13 MG/DL (0.70-1.30); GLOMERULAR FILTRATION RATE > 60.0 (>56); GLUCOSE, FASTING 101 MG/DL (70-100); POTASSIUM SERUM 4.2 MEQ/L (3.5-5.1); SODIUM LEVEL 136 MEQ/L (136-145); TOTAL PROTEIN 8.3 GM/DL (6.4-8.2)
[2020-09-02] MEDS ORDERED: PRED20TA PO (02:25)
[2020-09-02 02:30] VITALS: BP 109/67
== END 2020-09-02 02:36 | disposition home or self-care (01) ==
LOC: M ED 23:35
DX: R21 Rash and other nonspecific skin eruption (principal)
CPT/HCPCS: 80048; 80076; 85025; 99283; G0463

== ENCOUNTER → 2020-09-06 | Outpatient (CLI) | payer OTHER ==
[~2020-09-06] MED LIST changes: +PRED20TA PO; +URSO300C3 PO
--- NOTE | 2020-09-06 16:43 | REP ---
INDICATION: CIRRHOSIS. COMPARISON: CT 08/30/2020. TECHNIQUE: Multiple heavily T2 weighted sequences are obtained in the axial and coronal planes. 3D MIP reconstruction images are performed. FINDINGS: There is no intrahepatic or extrahepatic biliary dilatation. There is no gross biliary stricture and no focal dilatation. Common bile duct has a maximum diameter of approximately 3 mm. Pancreatic duct is normal in caliber. Gallbladder is mildly distended with no wall thickening or edema. No internal filling defect or gallstone is seen. There is no evidence of choledocholithiasis. There is mild hepatosplenomegaly. The length of the liver is approximately 18 cm. The length of the of the spleen is approximately 14.7 cm. There is an 8 mm cyst in the lateral segment of the left lobe of the liver. A lesion is again seen in the lower pole the left kidney, this appeared solid on the recent CT scan.. There are 2 slightly enlarged portal lymph nodes with a maximum short axis dimension of 1.3 cm. I see no free fluid in the abdomen. IMPRESSION: Unremarkable biliary system as discussed above. Mild hepatosplenomegaly. Suspicious lesion lower pole left kidney again noted. <Electronically signed by Magdy Flood > 09/06/20 1640
== END ==
LOC: M PLARAD 14:50
PROVIDERS: ATTEND Physician Assistant Medical
DX: K74.60 Unspecified cirrhosis of liver (principal); R16.0 Hepatomegaly, not elsewhere classified; N28.89 Other specified disorders of kidney and ureter

== ENCOUNTER → 2020-09-13 | Outpatient (REF) | payer OTHER ==
[2020-09-13 15:23] LABS: BASO % 0.3 % (0.0-1.0); EOS # 0.1 10^3/uL (0.0-0.5); EOS % 2.4 % (0.0-3.0); HEMATOCRIT 41.7 % (42.0-52.0); HEMOGLOBIN 12.8 g/dl (13.5-17.5); LYMPH # 1.1 10^3/uL (1.5-5.0); LYMPH % 32.9 % (24.0-44.0); MEAN CORPUSCULAR HEMOGLOBIN 27.2 pg (27.0-33.0); MEAN CORPUSCULAR HGB CONC 30.7 g/dl (32.0-36.5); MEAN CORPUSCULAR VOLUME 88.7 fl (80.0-96.0); MONO # 0.9 10^3/uL (0.0-0.8); MONO % 25.6 % (2.0-8.0); NEUTROPHILS # 1.3 10^3/uL (1.5-8.5); NEUTROPHILS % 38.2 % (36.0-66.0); WHITE BLOOD COUNT 3.4 10^3/uL (4.0-10.0)
[2020-09-13 15:32] LABS: INR 1.03; PROTHROMBIN TIME 13.8 SECONDS (12.5-14.3)
[2020-09-13 15:33] LABS: PARTIAL THROMBOPLASTIN TIME 45.8 SECONDS (24.2-38.5)
[2020-09-13 16:40] LABS: ALBUMIN 3.2 GM/DL (3.2-5.2); ALT/SGPT 35 U/L (12-78); BILIRUBIN,TOTAL 0.5 MG/DL (0.2-1.0); BLOOD UREA NITROGEN 15 MG/DL (7-18); CALCIUM LEVEL 8.9 MG/DL (8.5-10.1); CARBON DIOXIDE LEVEL 30 MEQ/L (21-32); CHLORIDE LEVEL 106 MEQ/L (98-107); CREATININE FOR GFR 0.82 MG/DL (0.70-1.30); GLOMERULAR FILTRATION RATE > 60.0 (>56); GLUCOSE, FASTING 78 MG/DL (70-100); IMMUNOGLOBULIN A 38.5 MG/DL (70-400); IMMUNOGLOBULIN G 752 MG/DL (681-1648); POTASSIUM SERUM 4.1 MEQ/L (3.5-5.1); SODIUM LEVEL 139 MEQ/L (136-145); TOTAL PROTEIN 8.1 GM/DL (6.4-8.2)
[2020-09-16 11:26] LABS: ALBUMIN % 45.7 % (55.8-66.1); ALPHA-1-GLOBULIN % 6.2 % (2.9-4.9); ALPHA-2-GLOBULINS % 9.9 % (7.1-11.8); BETA-1-GLOBULINS 0.36 GM/DL (0.28-0.60); BETA-1-GLOBULINS % 4.5 % (4.7-7.2); BETA-2-GLOBULINS 0.24 GM/DL (0.19-0.55); GAMMA GLOBULIN % 30.7 % (11.1-18.8); GAMMA GLOBULINS 2.49 GM/DL (0.65-1.58)
[2020-09-16 12:12] LABS: IMMUNOTYPING SERUM IGM ABNORMAL (NORMAL); IMMUNOTYPING SERUM KAPPA ABNORMAL (NORMAL)
[2020-09-17 16:08] LABS: ANTINUCLEAR ANTIBODIES DIRECT Negative (Negative)
== END ==
LOC: M SFHCPLAZ 13:14
PROVIDERS: ATTEND Physician Assistant
DX: K74.3 Primary biliary cirrhosis (principal)
CPT/HCPCS: 36415; 80053; 82784; 84165; 85025; 85610; 85730; 86038; 86256; 86335; 87220; G0463

== ENCOUNTER → 2020-10-02 | Outpatient (CLI) | payer OTHER ==
[~2020-10-02] MED LIST changes: +LIDOCAINE 1% MDV 20ML VIAL As Ordered ONE
[2020-10-02 12:00] VITALS: BP 103/61
--- NOTE | 2020-10-02 18:07 | REP ---
INDICATION: ELEVATED LFTs. COMPARISON: None. TECHNIQUE: The procedure was performed under the direct supervision of Dr. Flood. The risks and benefits of the procedure were explained to the patient and informed consent obtained. The risks and benefits of the procedure were explained to the patient and informed consent was obtained. The left lobe of the liver was localized using ultrasound guidance. The skin was prepped and draped in a sterile fashion. 1% lidocaine was used as a local anesthetic. Using ultrasound guidance a 17/18 gauge coaxial needle biopsy system was inserted and advanced into the liver. Five core biopsy samples were obtained and sent to the lab for analysis. The patient tolerated the procedure well and there were no immediate complications. After the appropriate amount to monitor convalescence the patient was discharged from the department. FINDINGS: None IMPRESSION: Ultrasound-guided liver biopsy. <Electronically signed by Jason Salinas > 10/02/20 1612 <Electronically signed by Magdy Flood > 10/02/20 0833
== END ==
LOC: M IRPRO 08:58
PROVIDERS: ATTEND Physician Assistant
DX: R94.5 Abnormal results of liver function studies (principal); K74.3 Primary biliary cirrhosis; R76.8 Other specified abnormal immunological findings in serum

== ENCOUNTER → 2020-11-05 | Outpatient (REF) | payer OTHER ==
[~2020-11-05] MED LIST changes: -LIDOCAINE 1% MDV 20ML VIAL As Ordered ONE
[2020-11-05 13:39] LABS: BASO % 0.8 % (0.0-1.0); EOS # 0.1 10^3/uL (0.0-0.5); EOS % 2.1 % (0.0-3.0); HEMATOCRIT 44.8 % (42.0-52.0); HEMOGLOBIN 14.1 g/dl (13.5-17.5); LYMPH # 1.6 10^3/uL (1.5-5.0); LYMPH % 30.6 % (24.0-44.0); MEAN CORPUSCULAR HEMOGLOBIN 27.9 pg (27.0-33.0); MEAN CORPUSCULAR HGB CONC 31.5 g/dl (32.0-36.5); MEAN CORPUSCULAR VOLUME 88.5 fl (80.0-96.0); MONO # 0.7 10^3/uL (0.0-0.8); NEUTROPHILS # 2.8 10^3/uL (1.5-8.5); NEUTROPHILS % 53.1 % (36.0-66.0); PLATELET COUNT, AUTOMATED 184 10^3/uL (150-450); RED BLOOD COUNT 5.06 10^6/uL (4.30-6.10); WHITE BLOOD COUNT 5.3 10^3/uL (4.0-10.0)
[2020-11-05 14:19] LABS: ALBUMIN 3.8 GM/DL (3.2-5.2); ALT/SGPT 28 U/L (12-78); BILIRUBIN,TOTAL 0.3 MG/DL (0.2-1.0); BLOOD UREA NITROGEN 15 MG/DL (7-18); CALCIUM LEVEL 10.1 MG/DL (8.5-10.1); CARBON DIOXIDE LEVEL 31 MEQ/L (21-32); CHLORIDE LEVEL 105 MEQ/L (98-107); CREATININE FOR GFR 0.94 MG/DL (0.70-1.30); FREE T4 0.96 NG/DL (0.76-1.46); GLOMERULAR FILTRATION RATE > 60.0 (>56); GLUCOSE, FASTING 81 MG/DL (70-100); POTASSIUM SERUM 4.4 MEQ/L (3.5-5.1); SODIUM LEVEL 140 MEQ/L (136-145); TOTAL PROTEIN 8.1 GM/DL (6.4-8.2)
== END ==
LOC: M SFHCPLAZ 10:33
PROVIDERS: ATTEND Physician Assistant Medical
DX: Z12.11 Encounter for screening for malignant neoplasm of colon (principal); Z13.220 Encounter for screening for lipoid disorders; R68.82 Decreased libido
CPT/HCPCS: 36415; 80053; 84439; 84443; 85025; G0463

== ENCOUNTER → 2021-01-22 | Outpatient (CLI) | payer OTHER ==
[~2021-01-22] MED LIST changes: +ISOVUE-370 76% 100ML VIAL ONE
--- NOTE | 2021-01-22 10:24 | REP ---
INDICATION: NODULE OF KIDNEY. COMPARISON: 08/30/[address], 09/06/2020 MRI liver TECHNIQUE: Bolus of 75 mL Isovue 370 with arteriovenous and delayed phase scanning of the abdomen. Precontrast images were provided. Arterial and venous coronal and sagittal reconstructions were provided. FINDINGS: Lung bases show no acute findings. The heart is not enlarged. There is no pericardial thickening or effusion and no hiatal hernia. The liver shows a prominent left hepatic lobe but has relatively smooth contours and no gross hepatomegaly. Low-density focus consistent with a small cyst about 1 cm peripherally in the subcapsular lateral segment left hepatic lobe, unchanged. Spleen is mildly enlarged with a 15 cm vertical diameter. No focal splenic mass. No ascites in the upper abdomen. Gallbladder partially contracted but without calcified stone or mass. Visualized pancreas unremarkable. The aorta aneurysm or dissection. Adrenal glands are normal. Right kidney is unremarkable. Left kidney shows no focal abnormality in the pre contrast images. In the lower pole left side there is a 1.6 cm cortical lesion attenuation 31.7 HU on arterial phase, 55 point 3 HU venous phase and 64.3 on delayed phase imaging. It does not become isodense to the kidney in any of the contrast images. No cyst, stone or hydronephrosis. There is no hydroureter on either side. Visualized small bowel loops and colon were unremarkable within the abdomen proper. Bones show of spondylosis with disc space narrowing and vacuum phenomena at L1-2. No compression deformity or destructive lesion. IMPRESSION: 1. Confirmation of a 1.6 cm solid lesion on three-phase scanning of the left kidney with lesion in the lower pole less dense than the surrounding normal parenchyma but enhancing between the arterial and venous phases and again on delayed phase. This is consistent with a solid lesion. Renal malignancy is not excluded. 2. Right kidney unremarkable. No hydronephrosis other renal lesions masses. 3. Prominent left hepatic lobe without gross hepatomegaly or lobulated liver contour. Homogeneous appearance of the liver parenchyma. 4. Mild splenomegaly unchanged. <Electronically signed by Ceasar Lepe > 01/22/21 1021
== END ==
LOC: M PLAIMG 09:23
PROVIDERS: ATTEND Nurse Practitioner Family
DX: N28.89 Other specified disorders of kidney and ureter (principal)
CPT/HCPCS: 74170; Q9967